=== PATIENT | female | born 1935 | race Caucasian/White ===

== ENCOUNTER 2023-11-07 09:24 | Emergency (ER) | payer MEDICARE, BC, SELFPAY ==
[2023-11-07] VITALS (45 sets, daily range): BP systolic 100–150; BP diastolic 55–82; PULSE 74–90; RESP 15–26; TEMP 36.6; O2SAT 97–100
--- NOTE | ~2023-11-07 | XR_ITS ---
EXAMINATION: XR chest 1V portable DATE: 11/07/2023 09:55 INDICATION: Chest wall pain. TECHNIQUE: A single frontal view of the chest was obtained. COMPARISON: Chest 2 views 08/20/2011 FINDINGS: A calcified right lung nodule and calcified right hilar lymph nodes are consistent with old granulomatous disease. There are interstitial opacities in the right mid and lower lung zones and le ft lower lung zone. No pleural effusion or pneumothorax. The heart size is normal. IMPRESSION: 1. Interstitial opacities in right mid and lower lung zones and left lower lung zone, consistent with atelectasis versus chronic lung disease. Reviewed, dictated and finalized at location A. [employer]
--- NOTE | 2023-11-07 09:28 | ECG_ITS ---
Measurements Intervals [place] Rate: 82 P: 66 MN: 160 QRS: 7 QRSD: 87 T: 35 QT: 358 QTc: 419 Interpretive Statements SINUS RHYTHM ATRIAL PREMATURE COMPLEXES BORDERLINE T WAVE ABNORMALITY- ANTERIOR LEADS BASELINE ARTIFACT- I, II, III, AVR, AVL, AVF, V1-V6 BORDERLINE ECG NO PREVIOUS ECG AVAILABLE FOR COMPARISON Electronically Signed On 11-07-2023 14:22:20 [place] by Jeffrey Whitney D.O.
--- NOTE | 2023-11-07 09:34 | ED.CHESTPAIN ---
HPI - Chest Pain General Chief Complaint: Chest Pain Stated Complaint: chest pain Time Seen by Provider: 11/07/23 09:27 History of Present Illness HPI narrative: 88-year-old female presenting to the emergency department for evaluation left-sided chest pain that has been ongoing for the past 2 days. Patient denies any falls or injuries. Patient denies any prior history of MO. Patient states she is not on any blood thinners. Patient does have ecchymosis across her chest wall and does have some reproducible chest wall tenderness. Related Data Allergies Allergy/AdvReac Type Severity Reaction Status Date / Time No Known Allergies Allergy Unknown Unverified 09/21/07 08:33 Review of Systems Review of Systems: All systems reviewed & are unremarkable except as noted in HPI and below Exam Narrative: APPEARANCE: Well appearing, no pain, no distress, well-nourished. HEAD: normocephalic, atraumatic. EYES: PERRLA/EOMI, conjunctivae clear. NOSE: Normal no drainage NECK: Supple. No adenopathy, no masses. RESPIRATORY: Airway patent, respirations nonlabored. Clear to auscultation bilaterally, no rales, rhonchi, wheezing. CARDIOVASCULAR: Regular rate and rhythm without murmurs rubs or gallops. ABDOMINAL: Soft, nontender, nondistended, normal bowel sounds MUSCULOSKELETAL: Chest wall tenderness to palpation with no crepitus or deformity NEURO: Alert. Cranial nerves II through XII intact. Good gait. Good coordination SKIN: Ecchymosis across the chest wall Course Course Emergency Course: 88-year-old female presents to the emergency department for evaluation of chest wall pain. Patient was noted to have an abrasion on her chest on Tuesday but they did not associate this with the chest pain. When patient revealed her chest today she did have some ecchymosis on her chest. Patient does have reproducible chest wall tenderness. Patient is afebrile with a minor leukocytosis of 10.3 patient has a stable hemoglobin. Patient has a high platelet count. No abnormalities in the patient's PT PTT and patient's CMP has no significant abnormalities. Patient had negative serial troponins. Chest x-ray shows no acute cardiopulmonary abnormality. Patient and family were updated on the results of the workup. Suspect patient had an injury to her chest wall causing the abrasion which led to the ecchymosis. Low concern for cardiac etiology. Discussed doing a CT of the patient's head but family was comfortable holding on this imaging for now. Patient is at her normal mental baseline and denies any head face or neck pain. Patient and family were updated on the results of workup and on reasons to return to the emergency department. All questions concerns were addressed. Vital Signs Vital signs: Vital Signs Temperature 97.8 F 11/07/23 09:29 Pulse Rate 87 11/07/23 09:29 Respiratory Rate 16 11/07/23 09:29 Blood Pressure 150/82 H 11/07/23 09:29 Pulse Oximetry 98 11/07/23 09:29 Oxygen Delivery Room Air 11/07/23 09:29 Temperature 97.8 F 11/07/23 09:29 Pulse Rate 77 11/07/23 14:15 Respiratory Rate 26 H 11/07/23 13:46 Blood Pressure 118/69 11/07/23 14:15 Pulse Oximetry 100 11/07/23 14:15 Oxygen Delivery Room Air 11/07/23 12:23 MDM - Chest Pain Differential Diagnosis Differential diagnosis: Likely pneumothorax, stable angina, unstable angina pectoris, atypical chest pain, st elevation myocardial infarction, costochondritis, chest pain and biliary colic Lab Data Attestation: I reviewed the patient's lab results. 11/07/23 09:44 11/07/23 09:44 Labs: Lab Results 11/07/23 11/07/23 Range/Units 09:44 12:20 WBC 10.3 H (4.5-10.0) K/mm3 RBC 4.68 (4.2-5.4) M/mm3 Hgb 12.8 (12.0-15.0) g/dL Hct 42.2 (37.0-47.0) % MCV 90.2 (80-100) fl MCH 27.4 (26-34) pg MCHC 30.3 L (32-36) g/dl RDW 14.6 H (11.5-14.5) % Plt Count 395 H (150-375) k/mm3 MPV 11.0 H (7.4-10.
[2023-11-07 09:51] LABS: Basophils Absolute Auto 0.1 K/mm3 (0.0-0.1); Eosinophils Absolute Auto 0.2 K/mm3 (0-0.3); Eosinophils Percent Auto 2.1 % (0-4.4); Hematocrit 42.2 % (37.0-47.0); Hemoglobin 12.8 g/dL (12.0-15.0); Immature Granulocyte Absolute 0.07 K/mm3 (0.00-0.031); Immature Granulocyte Percent A 0.7 % (0-0.5); Lymphocytes Absolute Auto 1.77 K/mm3 (0.9-3.2); Lymphocytes Percent Auto 17.2 % (18.3-44.2); Mean Corpuscular HGB Conc 30.3 g/dl (32-36); Mean Corpuscular Hemoglobin 27.4 pg (26-34); Mean Corpuscular Volume 90.2 fl (80-100); Monocytes Percent Auto 10.1 % (2.6-8.5); Neutrophils Absolute Auto 7.1 K/mm3 (1.3-6.7); Neutrophils Percent Auto 68.9 % (45.5-73.1); Platelet Count Result 395 k/mm3 (150-375); Red Blood Count 4.68 M/mm3 (4.2-5.4); Red Cell Distribution Width 14.6 % (11.5-14.5); White Blood Count 10.3 K/mm3 (4.5-10.0)
[2023-11-07 10:00] LABS: Alanine Aminotransferase 23 U/L (6-35); Albumin Level 3.9 g/dL (3.5-5.1); Alkaline Phosphatase 111 U/L (38-126); Anion Gap 9 mmol/L (8-16); Aspartate Amino Transferase 35 U/L (14-36); Bilirubin,Total 0.6 mg/dL (0.2-1.3); Blood Urea Nitrogen 21 mg/dL (7-17); Calcium 9.3 mg/dL (8.4-10.2); Carbon Dioxide 27 mmol/L (22-30); Chloride 104 mmol/L (98-107); Estimated CRCL calculation 33 ml/min; Estimated Glomerular Filt Rate 52; Glucose 98 mg/dL (65-110); Potassium 3.8 mmol/L (3.4-5.0); Sodium 140 mmol/L (137-145)
[2023-11-07 10:01] LABS: Prothrombin Time 13.3 Seconds (11.1-14.7)
[2023-11-07 10:02] LABS: Partial Thromboplastin Time 30.6 SECONDS (22.3-36.8)
[2023-11-07 10:12] LABS: Troponin I < 0.012 ng/mL (0.000-0.034)
--- NOTE | 2023-11-07 12:24 | ECG_ITS ---
Measurements Intervals [place] Rate: 76 P: 58 MO: 168 QRS: -1 QRSD: 88 T: 18 QT: 403 QTc: 455 Interpretive Statements SINUS RHYTHM ATRIAL PREMATURE COMPLEXES MINIMAL Q WAVES- INFERIOR LEADS BASELINE ARTIFACT- I, II, III, AVR, AVL, AVF, V1, V3 ABNORMAL ECG COMPARED TO ECG 11/07/2023 09:37:10 NO SIGNIFICANT CHANGES Electronically Signed On 11-07-2023 14:31:48 [employer]IREWORK[employer]PER[employer] by Jfefrey Whitney D.O.
[2023-11-07 12:46] LABS: Troponin I < 0.012 ng/mL (0.000-0.034)
--- NOTE | 2023-11-07 13:05 | PC.NURSE ---
pt has notable yellow bruising to the chest. pt denies falling or remembering any injury to the area.
== END 2023-11-07 14:16 | disposition home or self-care (01) ==
PROVIDERS: Emergency Provider Emergency Medicine
DX: R07.89 Other chest pain (principal); S20.219A Contusion of unspecified front wall of thorax, initial encounter; X58.XXXA Exposure to other specified factors, initial encounter; I49.1 Atrial premature depolarization; R94.31 Abnormal electrocardiogram [ECG] [EKG]; R91.8 Other nonspecific abnormal finding of lung field
CPT/HCPCS: 36415; 71045; 80053; 84484; 85025; 85610; 85730; 93005; 99284

== ENCOUNTER 2024-11-17 14:28 | Emergency (ER) | payer MEDICARE, SELFPAY ==
--- NOTE | ~2024-11-17 | XR_ITS ---
XR wrist LT min 3V Ordering provider: Juan A Lindsey MD History: . Fall, Lt. wrist pain/ deformity . Comparison: None. FINDINGS: BONES: Fracture of the distal metaphysis of the left radius with lateral displacement of the distal f ragment. Posterior displacement is also noted. Ulnar styloid fracture is also noted. JOINT SPACES: Narrowing of the radiocarpal joint. SOFT TISSUES: Normal. IMPRESSION: Fracture of the distal metaphysis of the radius with fracture of the ulnar styloid. Reviewed, dictated and finalized at location A. [employer]SEMBLER IMPRESSION: Fracture of the distal metaphysis of the radius with fracture of the ulnar styl oid.
[2024-11-17 14:28] VITALS: BP 154/76; PULSE 94; RESP 18; TEMP 36.4; O2SAT 98
[2024-11-17] MEDS: ACETAMINOPHEN 325 MG TABLET 650 MG PO (14:47)
--- NOTE | 2024-11-17 15:11 | ED_ITS ---
HPI - Extremity Injury (Upper) General Chief Complaint: Extremity Injury, Upper Stated Complaint: left wrist injury Time Seen by Provider: 11/17/24 14:33 Source: patient and family Mode of arrival: ambulatory Limitations: no limitations History of Present Illness HPI narrative: this is an 81-year-old female with history of dementia presents after she fell earlier today on a patch of ice while checking her mail injuring her left wrist with some swelling mild deformity but does have a brisk radial pulse on the left with no neurological deficits. complaint: injury to: left Onset (ago): hour(s) Other Extremity Injury: Left: wrist ( swelling with mild deformity) Other injuries: none Handedness: right Place: outdoors Severity: moderate Related Data Allergies Allergy/AdvReac Type Severity Reaction Status Date / Time No Known Allergies Allergy Unknown Verified 11/17/24 14:41 Review of Systems Review of Systems: All systems reviewed & are unremarkable except as noted in HPI and below PMFSH Past Medical History Medical History Dementia Exam Const: General: no acute distress Nutritional Appearance: well nourished Orientation/consciousness: patient oriented x3 Limitations: no limitations Neck: Neck: normal visual inspection and no lymphadenopathy Chest: Chest palpation & inspection: normal inspection of the chest Resp: Effort & Inspection: normal respiratory effort Auscultation: clear to auscultation bilaterally Cardio: Rate: regular rate Rhythm: regular rhythm GI: GI Palp: Yes Soft to palpation Skin: General skin exam: normal color Rashes: no rashes Wounds: no wounds Neuro: General: patient oriented x3, moves all extremities and no meningeal signs Extrem: Other: tenderness with swelling of the distal wrist on the left Course Course Emergency Course: patient received Tylenol extra-strength and ice to affected wrist, x-ray shows a fracture of the distal radius and ulnar spoke with orthopedic doctor on-call which accepted patient in his office for a follow-up. Vital Signs Vital signs: Vital Signs Temperature 36.4 C L 11/17/24 14:28 Pulse Rate 94 11/17/24 14:28 Respiratory Rate 18 11/17/24 14:28 Blood Pressure 154/76 H 11/17/24 14:28 Pulse Oximetry 98 11/17/24 14:28 Oxygen Delivery Room Air 11/17/24 14:28 Temperature 36.4 C L 11/17/24 14:28 Pulse Rate 94 11/17/24 14:28 Respiratory Rate 18 11/17/24 14:28 Blood Pressure 154/76 H 11/17/24 14:28 Pulse Oximetry 98 11/17/24 14:28 Oxygen Delivery Room Air 11/17/24 14:28 Critical Care Time Critical Care Time Critical Care Time: No Discharge Plan Discharge Clinical Impression: Fracture of wrist Qualifiers: Encounter type: initial encounter Fracture type: closed Laterality: left Qualified Code(s): S62.102A - Fracture of unspecified carpal bone, left wrist, initial encounter for closed fracture Patient Disposition: Home, Self-Care Condition: Stable Instructions: Antibiotic Form, Wrist Fracture in Adults (ED), How to Use a Sling (ED), Splint Care (ED) Additional Instructions: keep follow-up appointment with orthopedic doctor and take medicine as prescribed. Patient Language: Vietnamese Prescriptions: New tramadol 50 mg tablet 50 mg PO Q6H PRN (Reason: pain) Qty: 14 0RF Follow-up/Referrals: Noe Mcgowan M.D. [Primary Care Provider] - Time of Disposition: 15:16
[2024-11-17 15:40] VITALS: BP 152/74; PULSE 67; RESP 20; O2SAT 97
== END 2024-11-17 15:40 | disposition home or self-care (01) ==
PROVIDERS: Emergency Provider Emergency Medicine; PCP Family Medicine
DX: S52.592A Other fractures of lower end of left radius, initial encounter for closed fracture (principal); S52.612A Displaced fracture of left ulna styloid process, initial encounter for closed fracture; W00.0XXA Fall on same level due to ice and snow, initial encounter; F03.90 Unspecified dementia, unspecified severity, without behavioral disturbance, psychotic disturbance, mood disturbance, and anxiety
CPT/HCPCS: 29125; 73110; 99284; A4565; A9270